=== PATIENT | female | born 1970 | race Caucasian/White ===

== ENCOUNTER 2016-09-29 08:16 | Outpatient (CLI) | payer OTHER | END 2016-09-29 08:17 | disposition home or self-care (01) | DX: Z79.899 Other long term (current) drug therapy (principal) ==

== ENCOUNTER 2017-07-22 10:01 | Outpatient (CLI) | payer BC ==
[2017-07-22 17:30] LABS: BASOPHILS % (AUTO) 0.8 %; EOSINOPHILS % (AUTO) 0.6 %; HGB - HEMOGLOBIN 13.6 g/dL (12.0-16.0); LYMPHOCYTES # (AUTO) 1.7 10^3/uL (1.5-3.5); LYMPHOCYTES % (AUTO) 33.8 %; MEAN CORPUSCULAR HEMOGLOBIN 32.2 pg (27.0-31.0); MEAN CORPUSCULAR HGB CONC 33.7 g/dL (32.0-36.0); MEAN CORPUSCULAR VOLUME 95.7 fL (81.0-99.0); MEAN PLATELET VOLUME 7.7 fL (7.9-10.8); MONOCYTES # (AUTO) 0.4 10^3/uL (0.0-1.0); MONOCYTES % (AUTO) 7.7 %; NEUTROPHILS # (AUTO) 2.8 10^3/uL (1.5-6.6); NEUTROPHILS % (AUTO) 57.1 %; PLT - PLATELET COUNT 223 10^3/uL (130-450); RED BLOOD COUNT 4.21 10^6/uL (4.20-5.40); RED CELL DISTRIBUTION WIDTH 12.4 % (12.0-15.0)
[2017-07-22 17:55] LABS: ALBUMIN/GLOBULIN RATIO 1.5 (1.0-2.2); ALKALINE PHOSPHATASE 49 IU/L (42-121); ALT ALANINE AMINOTRANSFERASE 19 IU/L (10-60); AST ASPARTATE AMINOTRANSFERASE 19 IU/L (10-42); BILIRUBIN,TOTAL 0.6 mg/dL (0.2-1.0); BUN - BLOOD UREA NITROGEN 14 mg/dL (6-20); CALCIUM 8.9 mg/dL (8.5-10.3); CARBON DIOXIDE - CO2 26 mmol/L (21-32); CHLORIDE 102 mmol/L (101-111); CREATININE 0.7 mg/dL (0.4-1.0); GFR - MDRD 90 (>89); GLUCOSE 79 mg/dL (70-100); SODIUM 136 mmol/L (135-145); TOTAL PROTEIN 6.7 g/dL (6.7-8.2); URIC ACID 3.8 mg/dL (2.6-7.2)
[2017-07-22 17:56] LABS: CRP - C-REACTIVE PROTEIN < 1.0 mg/dL (0-1.0)
[2017-07-22 19:17] LABS: RHEUMATOID FACTOR NEGATIVE (Negative)
[2017-07-24 15:07] LABS: ANA SCREEN NEGATIVE (NEGATIVE)
== END 2017-07-22 10:02 | disposition home or self-care (01) ==
LOC: LAB.F 10:01
PROVIDERS: ATTEND Physician Assistant Medical
DX: Z00.00 Encounter for general adult medical examination without abnormal findings (principal); M25.50 Pain in unspecified joint
CPT/HCPCS: 36415; 80053; 84550; 85025; 85651; 86038; 86140; 86200; 86430

== ENCOUNTER 2017-08-24 09:38 | Outpatient (CLI) | payer BC ==
[2017-08-24 17:55] LABS: CHOL/HDL RATIO 2.8 (<4.4); CHOLESTEROL 190 mg/dL; HDL CHOLESTEROL 67 mg/dL; LDL CHOLESTEROL,CALCULATED 105 mg/dL; LDL/HDL RATIO 1.6 (<4.4); VLDL CHOLESTEROL 18 mg/dL
== END 2017-08-24 09:39 | disposition home or self-care (01) ==
LOC: LAB.F 09:38
PROVIDERS: ATTEND Physician Assistant Medical
DX: Z00.00 Encounter for general adult medical examination without abnormal findings (principal)
CPT/HCPCS: 36415; 80061; 82306; 83721; 84443

== ENCOUNTER 2017-08-26 10:14 | Outpatient (CLI) | payer BC ==
--- NOTE | 2017-08-27 11:12 | Mammography Report ---
DIGITAL SCREENING MAMMOGRAM: 08/26/2017 CLINICAL INDICATION: A 46-year-old nulliparous patient, for screening. COMPARISON: 05/2014, 08/2012. TECHNIQUE: Routine CC and MLO projections were obtained of the breasts. FINDINGS: Parenchymal tissue within the breasts is predominantly fatty replaced. There are no dominant masses, suspicious microcalcifications, or secondary signs of malignancy. In comparison to the previous studies, there are no significant changes. IMPRESSION: NO MAMMOGRAPHIC EVIDENCE OF MALIGNANCY. NO SIGNIFICANT INTERVAL CHANGES. RECOMMENDATION: Screening mammography is recommended annually. BIRADS category 1 - negative. STANDARD QUALIFYING STATEMENTS: 1. This examination was reviewed with the aid of Computed-Aided Detection (CAD). 2. A negative or benign imaging report should not delay biopsy if clinically suspicious findings are present. Consider surgical consultation if warranted. More than 5% of cancers are not identified by imaging. 3. Dense breasts may obscure an underlying neoplasm. TD: 08/27/2017 11:12
== END 2017-08-26 10:15 | disposition home or self-care (01) ==
LOC: DI.S 10:14
PROVIDERS: ATTEND Physician Assistant Medical
DX: Z00.00 Encounter for general adult medical examination without abnormal findings (principal)
CPT/HCPCS: 77067

== ENCOUNTER 2017-09-02 14:33 | Outpatient (CLI) | payer BC ==
--- NOTE | 2017-09-02 17:10 | Ultrasound Report ---
LIMITED RIGHT LOWER EXTREMITY NONVASCULAR ULTRASOUND: 09/02/2017 HISTORY: Posterior right knee pain. TECHNIQUE: Real-time scanning of the right popliteal fossa by the team cdl driver with saved static images reviewed. FINDINGS: There is no evidence of a Mcgovern's cyst, cystic or solid mass or fluid collection in the right popliteal fossa. There is normal flow in the popliteal artery and vein. No evidence of a popliteal artery aneurysm. IMPRESSION: NEGATIVE ULTRASOUND RIGHT POPLITEAL FOSSA. TD: 09/02/2017 17:09 ENRIQUETA
== END 2017-09-02 14:34 | disposition home or self-care (01) ==
LOC: DI 14:33
PROVIDERS: ATTEND Physician Assistant Medical
DX: M25.461 Effusion, right knee (principal); M25.561 Pain in right knee
CPT/HCPCS: 76882

== ENCOUNTER 2019-03-17 15:09 | Outpatient (CLI) | payer OTHER ==
--- NOTE | 2019-03-19 04:01 | XRAY Report ---
Reason: HIP PAIN, RIGHT M25.551 Procedure Date: 03/17/2019 Accession Number: [id number] / [id number] Procedure: XRS - Hip w/Pelvis 2-3V RT CPT Code: FULL RESULT: EXAM: RIGHT HIP RADIOGRAPHY EXAM DATE: 03/17/2019 03:20 PM. CLINICAL HISTORY: Hip pain, right. M25.551. Worsening right hip pain, interfering with activities of daily living. COMPARISON: None. TECHNIQUE: 2 views. FINDINGS: Bones: No acute displaced fractures or suspicious bony lesion. Joints: No dislocation. There is moderate to severe L4-L5 degenerative disk disease. Soft Tissues: No significant soft tissue swelling. IMPRESSION: No significant right hip abnormality demonstrated. RADIA
== END 2019-03-17 15:10 | disposition home or self-care (01) ==
LOC: DI.S 15:09
PROVIDERS: ATTEND Family Medicine
DX: M25.551 Pain in right hip (principal)

== ENCOUNTER 2019-03-23 08:14 | Outpatient (CLI) | payer OTHER ==
[2019-03-23 10:15] LABS: BASOPHILS % (AUTO) 0.4 %; EOSINOPHILS # (AUTO) 0.1 10^3/uL (0.0-0.7); EOSINOPHILS % (AUTO) 1.1 %; HGB - HEMOGLOBIN 13.3 g/dL (12.0-16.0); LYMPHOCYTES # (AUTO) 1.5 10^3/uL (1.5-3.5); MEAN CORPUSCULAR HEMOGLOBIN 32.4 pg (27.0-31.0); MEAN CORPUSCULAR HGB CONC 32.9 g/dL (32.0-36.0); MEAN CORPUSCULAR VOLUME 98.5 fL (81.0-99.0); MEAN PLATELET VOLUME 9.5 fL (7.9-10.8); MONOCYTES # (AUTO) 0.5 10^3/uL (0.0-1.0); MONOCYTES % (AUTO) 9.6 %; NEUTROPHILS # (AUTO) 3.3 10^3/uL (1.5-6.6); NEUTROPHILS % (AUTO) 61.5 %; PLT - PLATELET COUNT 243 10^3/uL (130-450); WHITE BLOOD COUNT 5.4 x10^3/uL (4.8-10.8)
[2019-03-23 10:28] LABS: ALBUMIN/GLOBULIN RATIO 1.4 (1.0-2.2); ALKALINE PHOSPHATASE 50 IU/L (42-121); ALT ALANINE AMINOTRANSFERASE 16 IU/L (10-60); AST ASPARTATE AMINOTRANSFERASE 18 IU/L (10-42); BILIRUBIN,TOTAL < 0.2 mg/dL (0.2-1.0); BUN - BLOOD UREA NITROGEN 15 mg/dL (6-20); CALCIUM 8.7 mg/dL (8.5-10.3); CARBON DIOXIDE - CO2 26 mmol/L (21-32); CHLORIDE 106 mmol/L (101-111); CREATININE 0.7 mg/dL (0.4-1.0); GFR - MDRD 90 (>89); GLUCOSE 85 mg/dL (70-100); SODIUM 139 mmol/L (135-145); TOTAL PROTEIN 6.8 g/dL (6.7-8.2)
== END 2019-03-23 08:15 | disposition home or self-care (01) ==
LOC: LAB.S 08:14
PROVIDERS: ATTEND Physician Assistant Medical
DX: Z51.81 Encounter for therapeutic drug level monitoring (principal); Z79.899 Other long term (current) drug therapy
CPT/HCPCS: 36415; 80053; 85025

== ENCOUNTER 2019-11-02 08:00 | Outpatient (CLI) | payer OTHER ==
--- NOTE | 2019-11-02 13:51 | XRAY Report ---
Reason: CONTUSION OF L KNEE Procedure Date: 11/02/2019 Accession Number: [id number] / [id number] Procedure: XRS - Knee 3 View LT CPT Code: Final Report FULL RESULT: PROCEDURE: Knee 3 View LT INDICATIONS: CONTUSION OF L KNEE TECHNIQUE: 3 views of the left knee were acquired. COMPARISON: None. FINDINGS: Bones: No fractures or dislocations. The joint spaces appear preserved. There is slight lateral tilt of the patella. There is an oval sclerotic lesion anteriorly in the distal femoral diaphysis with slightly indistinct margins but overall narrow zone of transition. This extends to the cortex anteriorly. No associated cortical erosions or periosteal reaction. Soft tissues: There is a small joint effusion. No suspicious soft tissue calcifications. IMPRESSION: 1. No fracture or dislocation. 2. Small joint effusion. 3. Slight lateral tilt of the patella. 4. Sclerotic overall nonaggressive appearing lesion in the distal femoral diaphysis suggestive of a chondroid lesion, such as an enchondroma although a low-grade chondrosarcoma cannot be excluded by imaging. The differential also includes a possible nonossifying fibroma. Reviewed by: Yung Lopez MD on 11/02/2019 1:50 PM PDT Approved by: Yung Lopez MD on 11/02/2019 1:50 PM PDT Station ID: [id number]
== END 2019-11-02 23:59 | disposition home or self-care (01) ==
LOC: DI.S 08:00
PROVIDERS: ATTEND Physician Assistant Medical
DX: M89.8X5 Other specified disorders of bone, thigh (principal); M25.462 Effusion, left knee

== ENCOUNTER 2019-11-10 16:10 | Outpatient (CLI) | payer OTHER ==
--- NOTE | 2019-11-10 17:18 | CT Report ---
PROCEDURE: LOWER EXTREMITY WO - LT INDICATIONS: BONE LESION,EFFUSION OF LEFT KNEE TECHNIQUE: Noncontrast 3 mm axial sections acquired of the left knee, with coronal and sagittal reformats. COMPARISON: None. FINDINGS: Image quality: Excellent. Bones: Mixed lytic and sclerotic lesion is seen in anterior medullary space of distal femoral shaft above the level of lateral femoral condyle and measures approximately 1.1 x 1 x 1.3 cm in size. Sligh t scalloping of avascular cortex of adjacent distal anterolateral femoral shaft is seen. No periostea l reaction or cortical destruction. No other intraosseous lesion is seen. Mild tricompartmental osteo arthritis is seen. No significant patellar subluxation. Soft tissues: There is mild anterior soft tissue swelling over patella. No significant joint effusio n is noted. Distal quadriceps tendon and patellar tendon are grossly intact. The anterior and posteri or cruciate ligaments are intact. IMPRESSION: 1. 1.1 x 1 x 1.3 cm mixed lytic and sclerotic lesion adjacent to anterolateral cortex of distal femor al shaft above the level of lateral femoral condyle with no adjacent cortical destruction or perioste al reaction. Finding likely represent benign process such as nonossifying fibroma or enchondroma. Ra diographic follow-up is recommended. No other intraosseous lesion is seen. 2. Mild tricompartmental osteoarthritis. 3. No significant joint effusion. Soft tissue swelling and edema along anterior aspect of patella and patella tendon. Distal quadriceps tendon and patellar tendon are intact. Reviewed by: Conor Leone MD on 11/10/2019 5:17 PM PDT Approved by: Conor Leone MD on 11/10/2019 5:17 PM PDT Station ID: [id number]
== END 2019-11-10 16:11 | disposition home or self-care (01) ==
LOC: DI 16:10
PROVIDERS: ATTEND Physician Assistant Medical
DX: M89.9 Disorder of bone, unspecified (principal); M17.12 Unilateral primary osteoarthritis, left knee; R60.0 Localized edema

== ENCOUNTER 2020-01-31 08:00 | Outpatient (CLI) | payer OTHER ==
--- NOTE | 2020-01-31 16:31 | XRAY Report ---
PROCEDURE: Shoulder 3 View LT INDICATIONS: LEFT SHOULDER PAIN TECHNIQUE: 3 views of the shoulder were acquired. COMPARISON: None. FINDINGS: Bones: Mild osteoarthritic changes of the left common clavicular joint. High riding humeral head whic h may indicate chronic rotator cuff tear. No fracture or dislocation. No suspicious lytic or blastic osseous lesion. Soft tissues: No suspicious soft tissue calcifications. IMPRESSION: Degenerative changes with possible chronic rotator cuff tear. Reviewed by: Frank Hills MD on 01/31/2020 4:30 PM PDT Approved by: Frank Hills MD on 01/31/2020 4:30 PM PDT Station ID: [id number]
== END 2020-01-31 23:59 | disposition home or self-care (01) ==
LOC: DI.S 08:00
PROVIDERS: ATTEND Emergency Medicine
DX: M19.012 Primary osteoarthritis, left shoulder (principal)

== ENCOUNTER 2021-12-30 08:00 | Outpatient (CLI) | payer OTHER ==
[2021-12-30 20:21] LABS: H. PYLORIS ANTIGEN STL NEGATIVE (Negative)
== END 2021-12-30 23:59 | disposition home or self-care (01) ==
LOC: LAB 08:00
PROVIDERS: ATTEND Physician Assistant
DX: R19.7 Diarrhea, unspecified (principal)
CPT/HCPCS: 87045; 87046; 87338; 87427